=== PATIENT | male | born 1995 | race African-American/Black ===

== ENCOUNTER 2019-03-07 19:27 | Inpatient (IN) ==
[2019-03-07 20:51] LABS: Basophils % 0.3 % (0.0-0.8); Eosinophils % 0.2 % (0.00-10.9); Hematocrit 55.6 VOL% (42.0-52.0); Hemoglobin 17.8 GM/DL (14.0-18.0); Immature Granulocytes % 0.3 %; Immature Granulocytes Absolute 0.03 #; Lymphocytes # 1.9 10*3/uL (1.4-4.0); Lymphocytes % 19.3 % (21.2-54.2); Mean Corpuscular Volume 80.2 FL (87-102); Mean Platelet Volume 11.4 FL (9.6-12.0); Monocytes % 17.7 % (1.7-12.7); Neutrophils % 62.2 % (38.7-73.9); Platelet Count 206 T/CUMM (130-400); Red Blood Count 6.93 MC/CUMM (3.8-5.5); Red Cell Distribution Width 16.5 % (9.3-17.3)
[2019-03-07 21:04] LABS: Albumin 4.9 G/DL (3.4-5.0); Bilirubin,Total 1.3 MG/DL (0.2-1.0); Calcium 9.9 MG/DL (8.5-10.1); Osmolality,Calculated 283.8 MOS/KG (273-304); Total Protein 10.4 G/DL (6.4-8.3)
[2019-03-07 23:40] LABS: Anisocytosis 1+; Band Neutrophils 3 % (0-10); Lymphocytes 21 % (20-55); Ovalocytes 1+; Platelet Estimate Adequate; Segmented Neutrophils 56 % (50-85); Total Cells Counted 100
[2019-03-08] MEDS ORDERED: ONDANSETRON 4 MG/2 ML VIAL IV STA (00:47)
[2019-03-08] MEDS ORDERED: SODIUM CHLORIDE 0.9% 1,000 ML IV STA ×2 (00:47→02:10)
[2019-03-08] MEDS ORDERED: HYDROmorphone 2 MG/1 ML VIAL IV STA (00:47)
[2019-03-08 02:40] LABS: Amylase 147 U/L (25-115); Troponin I 0.031 NG/ML (0.00-0.045)
[2019-03-08] MEDS ORDERED: POTASSIUM CHLORIDE 20 MEQ TABLET PO PRN (02:43)
[2019-03-08] MEDS ORDERED: ONDANSETRON 4 MG/2 ML VIAL IV PRN (02:43)
[2019-03-08] MEDS ORDERED: ACETAMINOPHEN 325 MG TABLET PO PRN (02:43)
[2019-03-08] MEDS ORDERED: MORPHINE 4 MG/1 ML VIAL IV PRN (02:43)
[2019-03-08 03:28] LABS: Apearance,Urine CLEAR (Clear); Bacteria,Urine Occasional /HPF (Few); Bilirubin,Urine Negative (Negative); Blood, Urine Moderate mg/dL (Negative); Glucose,Urine (UA) Negative (Negative); Hyaline Casts,Urine 13 /LPF (0-3); Ketones,Urine 5 mg/dL (Negative); Mucus,Urine Occasional /LPF (Occasional); Nitrite,Urine Negative (Negative); Protein,Urine 100 MG/DL; RBC,Urine 2 /HPF (0-4); Squamous Epithelial Cell,Urine Occasional /HPF (0-10); Urine Color Yellow (Yellow); Urine Specific Gravity 1.026 (1.001-1.035); Urine Urobilinogen < 2.0 EU/DL (0.2-1.0); WBC,Urine 3 /HPF (0-6)
[2019-03-08] MEDS ORDERED: THIAMINE INJ 100 MG, FOLIC ACID INJ 1 MG, MULTIVITAMIN INJ 10 ML in SODIUM CHLORIDE 0.9... IV ONE (05:00)
[2019-03-08] MEDS ORDERED: SODIUM CHLORIDE 0.9% 1,000 ML IV SCH ×2 (06:00→15:00)
[2019-03-08 07:12] LABS: Basophils % 0.2 % (0.0-0.8); Eosinophils % 0.3 % (0.00-10.9); Hematocrit 44.5 VOL% (42.0-52.0); Immature Granulocytes % 0.3 %; Immature Granulocytes Absolute 0.03 #; Lymphocytes # 2.1 10*3/uL (1.4-4.0); Mean Corpuscular HGB Conc 31.9 GM/DL (32-36); Mean Corpuscular Volume 80.5 FL (87-102); Mean Platelet Volume 12.1 FL (9.6-12.0); Monocytes % 20.4 % (1.7-12.7); Neutrophils % 59.8 % (38.7-73.9); Platelet Count 151 T/CUMM (130-400); Red Blood Count 5.53 MC/CUMM (3.8-5.5); Red Cell Distribution Width 14.6 % (9.3-17.3); White Blood Count 10.9 T/CUMM (4-12)
[2019-03-08] MEDS ORDERED: LACTATED RINGERS 1,000 ML IV SCH (07:30)
[2019-03-08 07:32] LABS: Hemoglobin 14.2 GM/DL (14.0-18.0)
[2019-03-08 07:41] LABS: Atypical Lymphocytes Few; Band Neutrophils 5 % (0-10); Eosinophils 1 % (0-10); Lymphocytes 21 % (20-55); Platelet Estimate Normal; Segmented Neutrophils 60 % (50-85); Total Cells Counted 100
[2019-03-08 07:47] LABS: Troponin I 0.041 NG/ML (0.00-0.045)
[2019-03-08 08:20] LABS: Alanine Aminotransferase 41 U/L (16-61); Albumin 3.5 G/DL (3.4-5.0); Alkaline Phosphatase 75 U/L (45-117); Aspartate Amino Transferase 117 U/L (0-37); Blood Urea Nitrogen 69 MG/DL (7-18); Calcium 8.6 MG/DL (8.5-10.1); Glucose 88 MG/DL (74-106); Osmolality,Calculated 288.1 MOS/KG (273-304); Total Protein 7.2 G/DL (6.4-8.3)
[2019-03-08] MEDS: PANTOPRAZOLE 40 MG TABLET PO SCH (08:37)
[2019-03-08 08:45] LABS: Barbiturates Screen,Urine Negative (Negative); Benzodiazepines Screen,Urine Negative (Negative); Cannabinoid Screen,Urine Positive (Negative); Opiate Screen,Urine Positive (Negative); Phencyclidine Screen,Urine Negative (Negative)
[2019-03-08] MEDS ORDERED: ALUMINUM/MAGNES/SIMETH MAX STR 30 ML UDCUP PO PRN (10:16)
[2019-03-08] MEDS ORDERED: IBUPROFEN 600 MG TABLET PO ONE (12:51)
[2019-03-08] MEDS ORDERED: BISACODYL 5 MG TABLET PO PRN (12:52)
[2019-03-08] MEDS: CALCIUM CARBONATE CHEW 500 MG TABLET PO SCH ×2 (15:06→20:16)
[2019-03-09 07:42] LABS: Basophils % 0.5 % (0.0-0.8); Eosinophils # 0.2 10*3/uL (0.0-0.87); Eosinophils % 2.4 % (0.00-10.9); Hematocrit 40.7 VOL% (42.0-52.0); Hemoglobin 12.8 GM/DL (14.0-18.0); Immature Granulocytes % 0.3 %; Immature Granulocytes Absolute 0.02 #; Lymphocytes # 2.3 10*3/uL (1.4-4.0); Lymphocytes % 34.3 % (21.2-54.2); Mean Corpuscular HGB Conc 31.4 GM/DL (32-36); Mean Corpuscular Volume 81.9 FL (87-102); Mean Platelet Volume 11.9 FL (9.6-12.0); Monocytes % 18.4 % (1.7-12.7); Neutrophils % 44.1 % (38.7-73.9); Platelet Count 126 T/CUMM (130-400); Red Blood Count 4.97 MC/CUMM (3.8-5.5); Red Cell Distribution Width 14.6 % (9.3-17.3); White Blood Count 6.6 T/CUMM (4-12)
[2019-03-09 07:49] LABS: Albumin 2.9 G/DL (3.4-5.0); Bilirubin,Total 0.6 MG/DL (0.2-1.0); Calcium 8.5 MG/DL (8.5-10.1); Osmolality,Calculated 283.5 MOS/KG (273-304)
[2019-03-09 08:14] LABS: Eosinophils 3 % (0-10); Hypochromasia 1+; Lymphocytes 38 % (20-55); Segmented Neutrophils 43 % (50-85); Total Cells Counted 100
[2019-03-09 08:15] LABS: Microcytosis Slight; Platelet Estimate Adequate
[2019-03-09] MEDS: CALCIUM CARBONATE CHEW 500 MG TABLET PO SCH ×2 (08:49→15:25)
[2019-03-09] MEDS: PANTOPRAZOLE 40 MG TABLET PO SCH (08:50)
[2019-03-09 11:45] VITALS: BP 111/60
== END 2019-03-09 15:33 | disposition home or self-care (01) | DRG 683 ==
LOC: N.ED 19:27 → N.EDINP 19:27 → SUATTDRO 03-08 02:43 → N.EDINP 03-08 03:45 → N.5E 03-08 04:23
PROVIDERS: ADMIT Internal Medicine; ATTEND Internal Medicine